=== PATIENT | female | born 2000 | race Caucasian/White ===

== ENCOUNTER 2021-08-22 18:16 | Emergency (ER) | payer MEDICAID ==
[~2021-08-22] VITALS: Ht 152.4 cm; Wt 82.0 kg
[2021-08-22 18:19] VITALS: BP 148/98
[2021-08-22] MEDS ORDERED: SODIUM CHLORIDE 0.9% 1,000 ML IV ONE (19:15)
[2021-08-22] MEDS ORDERED: ACETAMINOPHEN 325MG TABLET PO ONE (19:15)
[2021-08-22] MEDS ORDERED: METOCLOPRAMIDE HCL 10MG/2ML VIAL IV ONE (19:15)
== END 2021-08-22 21:17 | disposition left against medical advice (07) ==
LOC: ER 18:16
DX: Z53.21 Procedure and treatment not carried out due to patient leaving prior to being seen by health care provider (principal); Z86.16 Personal history of COVID-19; Z98.890 Other specified postprocedural states
CPT/HCPCS: 93005; J7030